=== PATIENT | male | born 1945 | race Caucasian/White ===

== ENCOUNTER → 2017-11-23 10:58 | Outpatient (CLI) | payer MEDICARE, OTHER, SELFPAY ==
--- NOTE | 2017-11-23 | DI.RAD.S_ITS ---
PROCEDURE: XR FOOT LT MIN 3V INDICATIONS: left foot pain and swelling TECHNIQUE: 3 views of the foot were acquired. COMPARISON: None. FINDINGS: Bones: No fractures or dislocations. No suspicious bony lesions. There is diffuse osteopenia. Diffuse interphalangeal and first MTP joint degeneration is present. There is hallux valgus appearance however weight bearing views would be more specific. Diffuse midfoot degenerative spurring and subchondral sclerosis. Posterior calcaneal spur is present. Soft tissues: No tibiotalar joint effusion. Achilles tendon appears normal. IMPRESSION: No acute fracture. Diffuse degenerative changes as above. Suspect hallux valgus, however weightbearing views would be more specific. Dictated by: Roland Holden M.D. on 11/23/2017 at 12:11 Approved by: Roland Holden M.D. on 11/23/2017 at 12:14
== END ==
PROVIDERS: Family Provider Family Medicine; PCP Family Medicine; Visit Provider Family Medicine
DX: M19.072 Primary osteoarthritis, left ankle and foot (principal); M77.32 Calcaneal spur, left foot; M85.872 Other specified disorders of bone density and structure, left ankle and foot; M79.672 Pain in left foot
CPT/HCPCS: 73630

== ENCOUNTER → 2018-10-10 16:05 | Outpatient (CLI) | payer MEDICARE, OTHER, SELFPAY ==
[2018-02-04 09:09] VITALS: BMI 32.7
--- NOTE | 2018-10-10 | DI.MRI.S_ITS ---
PROCEDURE: MR HIP RT WO/W CON INDICATIONS: RIGHT HIP PAIN TECHNIQUE: Noncontrast coronal T1 spin echo and STIR through the bony pelvis. Coronal and axial T2 fast spin echo with fat saturation, axial T1 spin echo with fat saturation, sagittal T1 spin echo, and oblique axial T2 fast spin echo with fat saturation through the hip. Post-contrast axial, coronal, and sagittal spin echo with fat saturation through the hip. COMPARISON: [facility], MR, HIP W&WO CONTRAST, 06/26/2017, 14:26. FINDINGS: Image quality: There is mild motion artifact. Bones and joints: There is regional bone marrow edema within the right femoral head and neck extending to the intertrochanteric region of the proximal right femur. There is a curvilinear subcortical low signal intensity line demonstrated on T1 and T2 along the superior articular surface of the right femoral head. No articular surface depression. There is a small associated right hip joint effusion. Prominent periarticular soft tissue edema and enhancement are demonstrated. The visualized lower lumbar spine demonstrates [id number] degenerative disc disease. Tendons and ligaments: The gluteus medius and minimus tendons appear intact, without associated muscle atrophy. The nearby proximal iliotibial band also appears intact. The iliopsoas tendon appears intact, without with a small amount of loculated fluid in the iliopsoas bursa. The origin of the hamstring tendon is intact at the ischial tuberosity, as well as the associated sacrotuberous ligament. The straight and reflected heads of the rectus femoris muscle origin appear intact, as well as the conjoint tendon. The ligamentum teres appears intact where visualized. Labrum and cartilage: There is circumferential degenerative tearing of the labrum including the superior, posterosuperior, anterosuperior, and anterior labrum. Cartilage surface of the femoral head demonstrates mild axial joint space narrowing. The alpha angle of the femur is within normal limits at less than 55 degrees. Soft tissues: No discrete soft tissue mass. Visualized muscles demonstrate normal bulk and internal signal. Quadratus femoris muscle demonstrates no internal edema to suggest ischiofemoral impingement. The proximal sciatic neurovascular bundle appears normal adjacent to the hamstring tendons. No free pelvic fluid. There is heterogeneous enlargement of the prostate likely representing BPH. The bladder demonstrates mild concentric wall thickening and trabeculation compatible with sequelae of chronic bladder outlet obstruction. IMPRESSION: 1. Confluent bone marrow edema and enhancement within the right femoral head and neck with a subcortical low signal intensity line along the superior articular surface. Findings are suggestive of a nondepressed impaction fracture with associated reactive edema. The differential includes avascular necrosis and transient migratory osteoporosis of the hip. 2. Small joint effusion with periarticular soft tissue edema enhancement. The findings may represent reactive changes, an inflammatory synovitis, or infection. Recommend correlation clinically and consider a followup MRI of the hip for further evaluation if indicated. The findings are similar to the contralateral hip on the prior MRI study. 3. Small iliopsoas bursa fluid collection compatible with bursitis. 4. Heterogeneous enlargement of the prostate with concentric bladder wall thickening and trabeculation consistent with sequelae of chronic bladder outlet obstruction. Dictated by: Rosalio Dietrich M.D. on 10/11/2018 at 15:02 Approved by: Rosalio Dietrich M.D. on 10/11/2018 at 15:19
== END ==
PROVIDERS: Family Provider Family Medicine; PCP Family Medicine; Visit Provider Physical Medicine & Rehabilitation
DX: M25.551 Pain in right hip (principal); M25.451 Effusion, right hip; N40.0 Benign prostatic hyperplasia without lower urinary tract symptoms; N32.89 Other specified disorders of bladder
CPT/HCPCS: 73723; A9579

== ENCOUNTER → 2020-02-02 14:11 | Outpatient (CLI) | payer MEDICARE, OTHER, SELFPAY ==
[2018-02-04 09:09] VITALS: BMI 32.7
[2020-02-03 12:28] LABS: COVID19 Sendout Not Detected (Not Detect)
== END ==
PROVIDERS: PCP Family Medicine; Visit Provider Physician Assistant
DX: Z11.59 Encounter for screening for other viral diseases (principal)
CPT/HCPCS: 87635

== ENCOUNTER 2020-02-05 12:25 | Day surgery (SDC) | payer MEDICARE, OTHER, SELFPAY ==
[2018-02-04 09:09] VITALS: BMI 32.7
[2020-02-05] VITALS (7 sets, daily range): BP systolic 120–152; BP diastolic 65–77; PULSE 52–98; RESP 11–22; TEMP 35.9–36.4; O2SAT 94–98; BMI 31.8
--- NOTE | 2020-02-05 | PATH_ITS ---
[facility] Accession Number: [id number] . 01 Material submitted: . colon - POLYP HEPATIC FLEXURE . 01 Clinical history: . SDC . 02 Diagnosis: Hepatic Flexure, Polyp, Biopsy: Tubular adenoma. [facility] 02/09/2020 1630 Local . 02 Electronically signed: . Melanie Shrestha MD, Pathologist NPI- [id number] . 01 Gross description: . POLYP HEPATIC FLEXURE: Received in formalin is 1 fragment(s) of bell, soft tissue measuring 0.3 x 0.3 x 0.3 cm submitted entirely in 1 cassette(s) /QBJ 02/06/2020 0834 Local . 02 Pathologist provided ICD-10: D12.3 . 02 CPT . 002266 Performed at: 01 [facility] [address] [id number] MD Rosalio Mccrary MD Phone: [phone] Performed at: 02 [facility] [address] [place] [id number] MD Melanie Shrestha MD Phone: [phone]
[2020-02-05] MEDS: LACTATED RINGERS 1,000 ML 200 ML IV (13:05)
--- NOTE | 2020-02-05 13:51 | PM.HP.1 ---
History of Present Illness History of Present Illness Date Patient Seen: 02/05/20 Time Patient Seen: 13:52 Chief complaint: SDC Narrative: The patient presents for colorectal sreening. They had previous screening 5 years ago which demonstrated adenomatous polyps which were resected. No personal or family history of colon cancer. On further history denies any recent gastrointestinal symptoms. No nausea, vomiting, abdominal pain, loss of appetite, unexplained weight loss, change in bowel habits, diarrhea, constipation, melena, hematochezia, or bright red blood per rectum. Patient History Medical History COPD (chronic obstructive pulmonary disease) (Acute) Surgical History S/P ablation of atrial fibrillation (Acute) Family & Social History Social History: household members none Tobacco & Substance use: Smoking Status Former smoker alcohol intake current alcohol intake frequency 0-2 drinks per day Substance Use Type does not use Meds Home Medications and Allergies Home Medications Medication Instructions Recorded Confirmed Type Spiriva with HandiHaler 1 puff INH QDAY #0 05/02/16 02/05/20 History albuterol sulfate [Ventolin HFA] 1 puff INH PRN PRN #0 05/02/16 02/05/20 History carvedilol [Coreg] 6.25 mg PO BID #0 05/02/16 02/05/20 History lorazepam 1 mg PO TIDP PRN #0 05/02/16 02/05/20 History multivitamin [Multiple Vitamins] 1 tab PO QDAY #0 05/02/16 02/05/20 History terazosin 10 mg PO QDAY #0 05/02/16 02/05/20 History apixaban [Eliquis] 5 mg PO BID 02/05/20 02/05/20 History cholecalciferol (vitamin D3) 50 mcg PO DAILY 02/05/20 02/05/20 History [Vitamin D3] diltiazem HCl 120 mg PO DAILY 02/05/20 02/05/20 History finasteride 5 mg PO DAILY 02/05/20 02/05/20 History Allergies Allergy/AdvReac Type Severity Reaction Status Date / Time No Known Drug Allergies Allergy Verified 02/05/20 12:44 Review of Systems Review of Systems Narrative: A 10 point review of systems is negative except as noted in the HPI Exam Vital Signs (past 8 hours): - 02/05/20 13:06 Temperature 97.6 F Pulse Rate 61 Respiratory Rate 18 Blood Pressure 152/77 H Pulse Oximetry 98 Oxygen Delivery Method Room Air Narrative Exam Narrative: General-no acute distress, well nourished adult male HEENT-moist mucous membranes, no scleral icterus Neck-supple, no lymphadenopathy Chest- non labored respirations, clear to auscultation bilaterally Cardiac-regular rate no peripheral edema Abdomen-soft, nontender, non distended Extremities-warm, well perfused Neurological-alert and oriented, no focal deficits Assessment & Plan Assessment and plan (1) Screening for colon cancer: Status: Acute Assessment & Plan narrative: The patient requires colorectal screening and colonoscopy is recommended. Technical details were discussed. Risks, benefits, alternatives explained. Risks including but not limited to myocardial infarction, aspiration, bleeding, pain, missed lesion, incomplete examination, need for further radiographic studies, colonic perforation, and need for major abdominal surgery were discussed. All questions were answered to their satisfaction, and they are in agreement with this plan.
[2020-02-05] MEDS: fentaNYL 250 MCG/5 ML INJ IV (14:00)
[2020-02-05] MEDS: MIDAZOLAM 5 MG/5 ML VIAL IV (14:00)
--- NOTE | 2020-02-05 14:16 | PM.OP.ENDO ---
Operative Date/Time/Diagnoses Date of procedure: 02/05/20 Time of procedure: 14:16 Pre-op diagnosis: Screening colonoscopy Post-op diagnosis: same Procedure & Clinicians Study performed: Colonoscopy Same procedure as scheduled: Yes Indications: 74-year-old man with history of adenomatous polyps here for a routine screening colonoscopy Surgeon: Duke Valadez Procedure Notes SCOAP/Timeout: Performed Procedure in detail: Patient placed in left lateral recumbent position. Time out was performed. Procedural sedation was administered with Versed and Fentanyl. Examination began with a thorough inspection of the perianal area there was no evidence of fissures, fistulae, external hemorrhoids or cutaneous malignancy. The colonoscopy scope was then placed into the rectum the the lumen was insufflated with air. The scope was carefully advanced forward. Ultimately the cecum was intubated and confirmed by identification of the ileocecal valve, the appendiceal orifice and the confluence of the taenia. The scope was then slowly withdrawn examining colon thoroughly in all directions. In the rectum the rectal columns were identified and retroflexion of the scope was performed for inspection of the distal rectum and anal canal. The colonoscopy was notable for the followin. Quality of the preparation-good 2. Hepatic flexure polyp less than 1 cm removed in its entirety with biopsy forceps hemostasis observed 3. Sigmoid diverticulosis Scope withdrawal time: 6 Sedation minutes: 15 Findings: diverticulosis and polyp Specimen(s): other (Hepatic flexure polyp) Complications: none Impression: Polyp, diverticulosis Post-procedure Recommendations: Colonscopy in 5 years and High fiber diet Disposition: same day surgery
--- NOTE | 2020-02-05 14:33 | SUR.PHASEI ---
Dr. Valadez notified patient's heart rate varying from 50-120. Mostly in the 70-90s. Patient denied chest pain, nausea or dyspnea. No new orders.
== END 2020-02-05 15:09 | disposition home or self-care (01) ==
PROVIDERS: PCP Family Medicine; Referring Provider Surgery; Visit Provider Surgery
PROC: 0DJD8ZZ Inspection of Lower Intestinal Tract, Via Natural or Artificial Opening Endoscopic (ICD-10-PCS; CPT 45378; principal; 2020-02-05 13:45)
DX: Z12.11 Encounter for screening for malignant neoplasm of colon (principal); J44.9 Chronic obstructive pulmonary disease, unspecified; K57.30 Diverticulosis of large intestine without perforation or abscess without bleeding; D12.3 Benign neoplasm of transverse colon
CPT/HCPCS: 45380; 99152; J2250; J3010

== ENCOUNTER → 2020-05-11 14:46 | Outpatient (CLI) | payer MEDICARE, OTHER, SELFPAY ==
[2018-02-04 09:09] VITALS: BMI 32.7
--- NOTE | 2020-05-11 | DI.ECHO.S_ITS ---
[facility] [facility]---------+ [facility] +---------+ : : [address] : : : : [id number] : : : : Phone: [phone] Echocardiogram Report + + :Name: SRINIVASAN VALENCIA Study Date: 05/11/2020 Height: 74 in : :[facility] Weight: 262 lb : : Gender: Male BSA: 2.4 m2 : :: 1945 Age: 74 yrs BP: 165/82 mmHg: :Reason For Study: DILATED CARDIOMYOPATHY : :Ordering Physician: TRINIDAD, : :DEQUAN Performed By: Pricila Monahan : :Referring: DEQUAN FRY : + + Interpretation Summary The left ventricle is normal in size. There is mild concentric left ventricular hypertrophy. Left ventricular systolic function is mildly reduced. Left ventricular ejection fraction is estimated to be 45%. LVEF has not changed since prior study. Diastolic parameters suggest probable normal left ventricular diastolic function and normal filling pressures. The right ventricle is mildly dilated. Right ventricular systolic function is mildly reduced and probably has borderlined improved since prior sutdy. Pulmonary artery pressures cannot be estimated because of the lack of a measurable TR jet velocity but the IVC suggests a CVP of around 3 mmHg. The left atrium is severely dilated. The right atrium is moderately dilated. There is an inter-atrial closure device present. There is no Doppler evidence for an interatrial shunt. There is mild to moderate mitral regurgitation. There is mild to moderate aortic regurgitation. The ascending aorta is mildly enlarged. Procedure: A two-dimensional transthoracic echocardiogram with color flow and Doppler was performed. The study quality was technically adequate. Comparison is made with the echocardiogram of 04/16/2015. The patient had occasional PVCs during the exam. The heart rate ranged between 47-66 bpm during the study. Left Ventricle: The left ventricle is normal in size. There is mild concentric left ventricular hypertrophy. The estimated left ventricular end diastolic volume is 120 ml. Left ventricular systolic function is mildly reduced. Left ventricular ejection fraction is estimated to be 45%. There is mild global hypokinesis of the left ventricle. Diastolic parameters suggest probable normal left ventricular diastolic function and normal filling pressures. Right Ventricle: The right ventricle is mildly dilated. Right ventricular systolic function is mildly reduced. Atria: The left atrium is severely dilated. The right atrium is moderately dilated. There is an inter-atrial closure device present. There is no Doppler evidence for an interatrial shunt. Mitral Valve: The mitral valve leaflets are slightly calcified. There is mild to moderate mitral regurgitation. There are multiple regurgitant jets present. Aortic Valve: The aortic valve is trileaflet. The aortic valve opens well. There is no aortic valve stenosis. There is mild to moderate aortic regurgitation. Tricuspid Valve: The tricuspid valve leaflets are thickened and/or calcified, but open well. Pulmonary artery pressures cannot be estimated because of the lack of a measurable TR jet velocity but the IVC suggests a CVP of around 3 mmHg. There is trace tricuspid regurgitation. Pulmonic Valve: The pulmonic valve is not well seen, but is grossly normal. There is mild pulmonic regurgitation. Great Vessels: The aortic root is normal size. The ascending aorta is mildly enlarged. The IVC is of normal diameter and collapses greater than 50% with a sniff. This suggests a low right atrial pressure of 3 mm Hg. Pericardium/ Pleura There is no pericardial effusion. There is no pleural effusion. MMode/2D Measurements & Calculations LVIDd: 5.7 cm LVOT diam: 2.4 cm LVIDs: 4.4 cm Ao root diam: 3.8 cm FS: 22.8 % asc Aorta Diam: 3.6 cm EPSS: 1.3 cm IVSd: 1.4 cm LVPWd: 1.2 cm LV bird. diameter/BSA (cm/m^2): 2.3 LV sys. diameter/BSA (cm/m^2): 1.8 LA A2 area: 32.3 cm2 RA long axis: 5.6 cm LA A4 area: 29.7 cm2 RA area: 26.5 cm2 LA length (vol): 6.5 cm RA vol: 105.9 ml LA vol: 125.1 ml RA : 43.4 ml/m2 LA vol index: 51.3 ml/m2 IVC diam: 1.1 cm RVD1 (basal): 4.6 cm TAPSE: 1.6 cm Doppler Measurements & Calculations Ao V2 max: 118.6 cm/sec LVOT Max Marcellus: 70.0 cm/sec Ao V2 mean: 84.9 cm/sec LV V1 max P.0 mmHg Ao max P.6 mmHg LV V1 VTI: 17.3 cm Ao mean P.1 mmHg GAGAN(I,D): 2.5 cm2 Ao V2 VTI: 30.4 cm GAGAN(V,D): 2.6 cm2 sev ratio: 0.57 GAGAN indexed to BSA (cm^2/m^2): 1.0 AI P1/2t: 847.1 msec AI dec slope: 146.8 cm/sec2 MV E max marcellus: 60.4 cm/sec PA V2 max: 68.1 cm/sec MV A max marcellus: 55.6 cm/sec PA V2 mean: 41.4 cm/sec MV E/A: 1.1 PA mean P.81 mmHg Med Peak E' Marcellus: 5.1 cm/sec PA pr(Accel): 19.9 mmHg E/E' med: 11.9 Lat Peak E' Marcellus: 6.1 cm/sec E/E' lat: 9.9 E/e' average: 10.9 MV dec time: 0.25 sec SV(LVOT): 76.1 ml Reading Physician:06:02 PM
== END ==
PROVIDERS: Referring Provider Internal Medicine Cardiovascular Disease; Visit Provider Internal Medicine Cardiovascular Disease
DX: I08.0 Rheumatic disorders of both mitral and aortic valves (principal); I77.89 Other specified disorders of arteries and arterioles; I42.0 Dilated cardiomyopathy
CPT/HCPCS: 93306

== ENCOUNTER → 2020-11-29 07:47 | Outpatient (CLI) | payer MEDICARE, OTHER, SELFPAY ==
[2018-02-04 09:09] VITALS: BMI 32.7
[2020-11-29 08:22] LABS: Add Manual Diff / Slide Review NO; Basophils Absolute Auto 100 /uL (0-100); Eosinophils Absolute Auto 100 /uL (0-450); Eosinophils Percent Auto 2.2 % (2-4); Hematocrit 46.1 % (41-53); Hemoglobin 15.8 g/dL (13.5-17.5); Lymphocytes Absolute Auto 1400 /uL (1100-4500); Lymphocytes Percent Auto 24.9 % (25-40); Mean Corpuscular HGB Conc 34.2 % (30-36); Mean Corpuscular Hemoglobin 31.3 PG (26-34); Mean Corpuscular Volume 91.4 fL (80-100); Monocytes Absolute Auto 400 /uL (0-900); Monocytes Percent Auto 7.1 % (3-14); Neutrophils Absolute Auto 3600 /uL (1500-7000); Neutrophils Percent Auto 64.8 % (50-75); Platelet Count 133 X10^3/uL (150-400); Red Blood Cell Count 5.05 X10^6/uL (4.5-5.9); Red Cell Distribution Width 13.2 % (11.6-14.8); White Blood Cell Count 5.6 X10^3/uL (4.5-11.0)
[2020-11-29 08:46] LABS: Alanine Aminotransferase 21 IU/L (<50); Albumin 3.9 g/dL (3.5-5.0); Albumin Globulin Ratio 1.6 (1.0-2.8); Alkaline Phosphatase 68 U/L (38-126); Aspartate Aminotransferase 25 IU/L (17-59); BUN Creatinine Ratio 20.4 (6-22); Bilirubin Total 0.8 mg/dL (0.2-1.3); Blood Urea Nitrogen 22 mg/dL (9-20); Calcium 9.4 mg/dL (8.4-10.2); Carbon Dioxide 29 mmol/L (22-32); Chloride 105 mmol/L (98-107); Cholesterol 191 mg/dL (140-199); Estimated Glomerular Filt Rate > 60.0 mL/min (>60); Globulin 2.4 g/dL (1.7-4.1); Glucose 94 mg/dL (80-110); HDL Cholesterol 67 mg/dL (40-60); HEMOLYSIS < 15 (0-50); LDL Cholesterol Calculated 110 mg/dL (<100); Potassium 4.2 mmol/L (3.4-5.1); Sodium 140 mmol/L (137-145); Total Protein 6.3 g/dL (6.3-8.2); Triglycerides 71 mg/dL (35-150)
== END ==
PROVIDERS: PCP Internal Medicine; Referring Provider Internal Medicine; Visit Provider Internal Medicine
DX: E29.1 Testicular hypofunction (principal); I10 Essential (primary) hypertension; I49.9 Cardiac arrhythmia, unspecified; J44.9 Chronic obstructive pulmonary disease, unspecified; N13.8 Other obstructive and reflux uropathy; N40.1 Benign prostatic hyperplasia with lower urinary tract symptoms
CPT/HCPCS: 36415; 80053; 80061; 85025

== ENCOUNTER → 2021-01-06 08:47 | Outpatient (CLI) | payer MEDICARE, OTHER, SELFPAY ==
[2018-02-04 09:09] VITALS: BMI 32.7
[2021-01-06 10:27] LABS: COVID19 -Nasal RAPID Negative (Negative)
== END ==
PROVIDERS: PCP Internal Medicine; Referring Provider Internal Medicine; Visit Provider Internal Medicine
DX: Z20.822 Contact with and (suspected) exposure to COVID-19 (principal)
CPT/HCPCS: 87635; C9803

== ENCOUNTER → 2021-01-06 08:49 | Outpatient (CLI) | payer MEDICARE, OTHER, SELFPAY ==
[2018-02-04 09:09] VITALS: BMI 32.7
--- NOTE | 2021-01-15 09:47 | PM.PFT.1 ---
Pulmonary Function Test Referral & Results Date Patient Seen: 01/06/21 Requesting provider: Lauro Hinkle Results: The spirometry demonstrates an FVC of 3.41 L which is 69% of predicted. The FEV1 was measured at 2.33 L which is 66% of predicted. The FEV1/FVC ratio was 68 which is 95% of predicted. Following the administration of bronchodilator there was a 29% improvement in FEF 25-75% Lung volumes show an SVC of 3.74 L which is 74% of predicted. The diffusing capacity was measured at 35.8 which is 95% of predicted. The maximum voluntary ventilation was slightly reduced Interpretation: This study demonstrates possibly mild obstructive lung disease based on reduction FEV1 although FEV1/FVC ratio is preserved there is evidence of improvement in small airway flow based on change in FEF 25-75% post bronchodilator and shape of flow volume loop also supports the presence of obstructive lung disease There is a mild reduction in lung volumes suggesting mild restrictive lung disease present as well Clinical correlation suggested
== END ==
PROVIDERS: PCP Internal Medicine; Referring Provider Internal Medicine; Visit Provider Internal Medicine
DX: J44.9 Chronic obstructive pulmonary disease, unspecified (principal); Z20.822 Contact with and (suspected) exposure to COVID-19; Z87.891 Personal history of nicotine dependence
CPT/HCPCS: 87635; 94060; 94726; 94729; C9803

== ENCOUNTER 2021-05-26 10:15 | Outpatient (RCR) | payer MEDICARE, OTHER, SELFPAY ==
[2018-02-04 09:09] VITALS: BMI 32.7
== END 2021-05-26 12:15 ==
LOC: PUL 10:15
PROVIDERS: PCP Internal Medicine; Referring Provider Internal Medicine; Visit Provider Internal Medicine
DX: J44.9 Chronic obstructive pulmonary disease, unspecified (principal)
CPT/HCPCS: 94625; 94626; G0424

== ENCOUNTER → 2021-09-30 10:02 | Outpatient (CLI) | payer MEDICARE, OTHER, SELFPAY ==
[2021-07-01 13:41] VITALS: BMI 32.7
[2021-09-30 10:31] LABS: Add Manual Diff / Slide Review NO; Basophils Absolute Auto 100 /uL (0-100); Basophils Percent Auto 1.2 % (0-2); Eosinophils Absolute Auto 100 /uL (0-450); Eosinophils Percent Auto 2.2 % (2-4); Hematocrit 45.8 % (41-53); Hemoglobin 15.7 g/dL (13.5-17.5); Lymphocytes Absolute Auto 1300 /uL (1100-4500); Lymphocytes Percent Auto 22.8 % (25-40); Mean Corpuscular HGB Conc 34.2 % (30-36); Mean Corpuscular Hemoglobin 31.1 PG (26-34); Mean Corpuscular Volume 90.9 fL (80-100); Monocytes Absolute Auto 500 /uL (0-900); Monocytes Percent Auto 8.5 % (3-14); Neutrophils Absolute Auto 3600 /uL (1500-7000); Neutrophils Percent Auto 65.3 % (50-75); Platelet Count 123 X10^3/uL (150-400); Red Blood Cell Count 5.04 X10^6/uL (4.5-5.9); White Blood Cell Count 5.5 X10^3/uL (4.5-11.0)
[2021-09-30 10:44] LABS: Alanine Aminotransferase 19 IU/L (<50); Albumin 4.2 g/dL (3.5-5.0); Albumin Globulin Ratio 1.7 (1.0-2.8); Alkaline Phosphatase 76 U/L (38-126); Aspartate Aminotransferase 26 IU/L (17-59); BUN Creatinine Ratio 20.4 (6-22); Bilirubin Total 0.8 mg/dL (0.2-1.3); Blood Urea Nitrogen 21 mg/dL (9-20); Calcium 9.3 mg/dL (8.4-10.2); Carbon Dioxide 32 mmol/L (22-32); Chloride 105 mmol/L (98-107); Estimated Glomerular Filt Rate > 60 mL/min (>60); Globulin 2.5 g/dL (1.7-4.1); Glucose 95 mg/dL (80-110); HEMOLYSIS < 15 (0-50); Potassium 4.3 mmol/L (3.4-5.1); Sodium 140 mmol/L (137-145); Total Protein 6.7 g/dL (6.3-8.2)
== END ==
PROVIDERS: PCP Internal Medicine; Referring Provider Internal Medicine; Visit Provider Internal Medicine
DX: I10 Essential (primary) hypertension (principal); I48.0 Paroxysmal atrial fibrillation; Z79.01 Long term (current) use of anticoagulants
CPT/HCPCS: 36415; 80053; 85025

== ENCOUNTER → 2022-08-15 11:01 | Outpatient (CLI) | payer MEDICARE, OTHER, SELFPAY ==
[2021-07-01 13:41] VITALS: BMI 32.7
[2022-08-15 12:19] LABS: Add Manual Diff / Slide Review NO; Basophils Absolute Auto 100 /uL (0-100); Basophils Percent Auto 1.4 % (0-2); Eosinophils Absolute Auto 100 /uL (0-450); Eosinophils Percent Auto 1.6 % (2-4); Hematocrit 47.6 % (41-53); Hemoglobin 16.1 g/dL (13.5-17.5); Lymphocytes Absolute Auto 1300 /uL (1100-4500); Lymphocytes Percent Auto 23.7 % (25-40); Mean Corpuscular HGB Conc 33.8 % (30-36); Mean Corpuscular Hemoglobin 31.2 PG (26-34); Mean Corpuscular Volume 92.3 fL (80-100); Monocytes Absolute Auto 400 /uL (0-900); Monocytes Percent Auto 6.5 % (3-14); Neutrophils Absolute Auto 3800 /uL (1500-7000); Neutrophils Percent Auto 66.8 % (50-75); Platelet Count 134 X10^3/uL (150-400); Red Blood Cell Count 5.15 X10^6/uL (4.5-5.9); Red Cell Distribution Width 14.4 % (11.6-14.8); White Blood Cell Count 5.7 X10^3/uL (4.5-11.0)
[2022-08-15 12:27] LABS: C-Reactive Protein Quant 0.7 mg/dL (<1.0)
[2022-08-15 12:34] LABS: Alanine Aminotransferase 22 IU/L (<50); Albumin Globulin Ratio 1.4 (1.0-2.8); Alkaline Phosphatase 75 U/L (38-126); Aspartate Aminotransferase 26 IU/L (17-59); BUN Creatinine Ratio 19.1 (6-22); Bilirubin Total 0.9 mg/dL (0.2-1.3); Blood Urea Nitrogen 21 mg/dL (9-20); Calcium 9.4 mg/dL (8.4-10.2); Carbon Dioxide 31 mmol/L (22-32); Chloride 103 mmol/L (98-107); Estimated Glomerular Filt Rate > 60 mL/min (>60); Globulin 2.9 g/dL (1.7-4.1); Glucose 84 mg/dL (80-110); HEMOLYSIS < 15 (0-50); Potassium 4.2 mmol/L (3.4-5.1); Sodium 140 mmol/L (137-145); Total Protein 6.9 g/dL (6.3-8.2)
[2022-08-15 12:36] LABS: Total Iron Binding Capacity 294 ug/dL (261-462)
[2022-08-15 12:41] LABS: HEMOLYSIS < 15 (0-50); Iron 147 ug/dL (49-181)
[2022-08-15 12:52] LABS: Percent Iron Saturation 52 % (20-50); Total Iron Binding Capacity 283 ug/dL (261-462); Transferrin 222 mg/dL (206-381)
[2022-08-15 12:57] LABS: Ferritin 159 ng/mL (18-464)
== END ==
PROVIDERS: PCP Internal Medicine; Referring Provider Internal Medicine Sleep Medicine; Visit Provider Internal Medicine Sleep Medicine
DX: R25.8 Other abnormal involuntary movements (principal); E83.10 Disorder of iron metabolism, unspecified; G25.81 Restless legs syndrome; I10 Essential (primary) hypertension; I48.0 Paroxysmal atrial fibrillation; J44.9 Chronic obstructive pulmonary disease, unspecified; D64.9 Anemia, unspecified
CPT/HCPCS: 36415; 80053; 82728; 83540; 83550; 85025; 86140

== ENCOUNTER → 2023-03-23 10:49 | Outpatient (CLI) | payer MEDICARE, OTHER, SELFPAY ==
[2021-07-01 13:41] VITALS: BMI 32.7
[2023-03-23 11:22] LABS: Add Manual Diff / Slide Review NO; Basophils Absolute Auto 100 /uL (0-100); Basophils Percent Auto 1.1 % (0-2); Eosinophils Absolute Auto 100 /uL (0-450); Eosinophils Percent Auto 2.2 % (2-4); Hematocrit 45.6 % (41-53); Hemoglobin 15.7 g/dL (13.5-17.5); Lymphocytes Absolute Auto 1300 /uL (1100-4500); Lymphocytes Percent Auto 20.5 % (25-40); Mean Corpuscular HGB Conc 34.3 % (30-36); Mean Corpuscular Hemoglobin 31.2 PG (26-34); Mean Corpuscular Volume 90.9 fL (80-100); Monocytes Absolute Auto 400 /uL (0-900); Neutrophils Absolute Auto 4200 /uL (1500-7000); Neutrophils Percent Auto 69.2 % (50-75); Platelet Count 129 X10^3/uL (150-400); Red Blood Cell Count 5.01 X10^6/uL (4.5-5.9); Red Cell Distribution Width 13.7 % (11.6-14.8); White Blood Cell Count 6.1 X10^3/uL (4.5-11.0)
[2023-03-23 11:35] LABS: Alanine Aminotransferase 19 IU/L (<50); Albumin Globulin Ratio 1.5 (1.0-2.8); Alkaline Phosphatase 72 U/L (38-126); Aspartate Aminotransferase 24 IU/L (17-59); BUN Creatinine Ratio 21.1 (6-22); Blood Urea Nitrogen 23 mg/dL (9-20); Calcium 9.7 mg/dL (8.4-10.2); Carbon Dioxide 31 mmol/L (22-32); Chloride 102 mmol/L (98-107); Estimated Glomerular Filt Rate > 60 mL/min (>60); Globulin 2.6 g/dL (1.7-4.1); Glucose 90 mg/dL (80-110); HEMOLYSIS < 15 (0-50); Potassium 4.4 mmol/L (3.4-5.1); Sodium 138 mmol/L (137-145); Total Protein 6.6 g/dL (6.3-8.2)
== END ==
PROVIDERS: PCP Internal Medicine; Referring Provider Internal Medicine; Visit Provider Internal Medicine
DX: I10 Essential (primary) hypertension (principal); I48.0 Paroxysmal atrial fibrillation; J44.9 Chronic obstructive pulmonary disease, unspecified
CPT/HCPCS: 36415; 80053; 85025

== ENCOUNTER → 2023-04-26 14:15 | Outpatient (CLI) | payer MEDICARE, OTHER, SELFPAY ==
[2021-07-01 13:41] VITALS: BMI 32.7
[2023-04-26 15:17] LABS: Add Manual Diff / Slide Review NO; Basophils Absolute Auto 0 /uL (0-100); Basophils Percent Auto 0.7 % (0-2); Eosinophils Absolute Auto 100 /uL (0-450); Eosinophils Percent Auto 1.7 % (2-4); Hemoglobin 16.1 g/dL (13.5-17.5); Lymphocytes Absolute Auto 1500 /uL (1100-4500); Lymphocytes Percent Auto 24.2 % (25-40); Mean Corpuscular HGB Conc 34.1 % (30-36); Mean Corpuscular Hemoglobin 31.4 PG (26-34); Mean Corpuscular Volume 92.1 fL (80-100); Monocytes Absolute Auto 400 /uL (0-900); Monocytes Percent Auto 6.7 % (3-14); Neutrophils Absolute Auto 4100 /uL (1500-7000); Neutrophils Percent Auto 66.7 % (50-75); Platelet Count 140 X10^3/uL (150-400); Red Blood Cell Count 5.11 X10^6/uL (4.5-5.9); Red Cell Distribution Width 13.6 % (11.6-14.8); White Blood Cell Count 6.1 X10^3/uL (4.5-11.0)
[2023-04-26 15:54] LABS: Alanine Aminotransferase 24 IU/L (<50); Albumin 4.1 g/dL (3.5-5.0); Albumin Globulin Ratio 1.4 (1.0-2.8); Alkaline Phosphatase 68 U/L (38-126); Aspartate Aminotransferase 29 IU/L (17-59); BUN Creatinine Ratio 17.4 (6-22); Bilirubin Total 0.9 mg/dL (0.2-1.3); Blood Urea Nitrogen 20 mg/dL (9-20); Carbon Dioxide 34 mmol/L (22-32); Chloride 102 mmol/L (98-107); Estimated Glomerular Filt Rate > 60 mL/min (>60); Globulin 2.9 g/dL (1.7-4.1); Glucose 90 mg/dL (80-110); HEMOLYSIS < 15 (0-50); Potassium 4.7 mmol/L (3.4-5.1); Sodium 140 mmol/L (137-145)
[2023-04-26 19:12] LABS: TSH w/ Reflex to FT4 2.89 uIU/mL (0.47-4.68)
== END ==
PROVIDERS: PCP Internal Medicine; Referring Provider Internal Medicine; Visit Provider Internal Medicine
DX: I10 Essential (primary) hypertension (principal); I42.0 Dilated cardiomyopathy; I48.92 Unspecified atrial flutter
CPT/HCPCS: 36415; 80053; 84443; 85025

== ENCOUNTER → 2024-03-16 12:08 | Outpatient (CLI) | payer MEDICARE, OTHER, SELFPAY ==
[2023-05-18 14:55] VITALS: BMI 32.7
[2024-03-16 12:53] LABS: Influenza A - CEPHEID Flu A NEGATIVE (NEGATIVE); Influenza B - CEPHEID Flu B NEGATIVE (NEGATIVE); Respiratory Syncytial Virus Negative (Negative)
[2024-03-16 12:54] LABS: COVID-19 CEPHEID 4-PLEX PCR Negative (Negative)
== END ==
PROVIDERS: Family Provider Internal Medicine; PCP Internal Medicine; Visit Provider Physician Assistant Surgical
DX: R05.1 Acute cough (principal)
CPT/HCPCS: 0241U

== ENCOUNTER → 2024-03-16 12:50 | Outpatient (CLI) | payer MEDICARE, OTHER, SELFPAY ==
[2023-05-18 14:55] VITALS: BMI 32.7
--- NOTE | 2024-03-16 12:52 | DI.RAD.S_ITS ---
PROCEDURE: XR CHEST 2V INDICATIONS: Cough, SOB TECHNIQUE: 2 views of the chest were acquired. COMPARISON: None. FINDINGS: Surgical changes and devices: None. Lungs and pleura: Lungs are clear. No pleural effusions or pneumothorax. Mediastinum: Mediastinal contours are normal. Heart size is normal. Bones and chest wall: No suspicious bony abnormalities. Soft tissues appear unremarkable. IMPRESSION: No acute cardiopulmonary pathology. Dictated by: Dickson Gilliam M.D. on 03/16/2024 at 13:10 Approved by: Dickson Gilliam M.D. on 03/16/2024 at 13:12
== END ==
PROVIDERS: Family Provider Internal Medicine; PCP Internal Medicine; Referring Provider Physician Assistant Surgical; Visit Provider Physician Assistant Surgical
DX: R05.1 Acute cough (principal)
CPT/HCPCS: 0241U; 71046

== ENCOUNTER → 2024-05-19 14:02 | Outpatient (CLI) | payer MEDICARE, OTHER, SELFPAY ==
[2023-05-18 14:55] VITALS: BMI 32.7
[2024-05-19 15:10] LABS: Add Manual Diff / Slide Review NO; Basophils Absolute Auto 100 /uL (0-100); Basophils Percent Auto 1.2 % (0-2); Eosinophils Absolute Auto 200 /uL (0-450); Eosinophils Percent Auto 2.7 % (2-4); Hematocrit 48.8 % (41-53); Hemoglobin 16.5 g/dL (13.5-17.5); Lymphocytes Absolute Auto 1400 /uL (1100-4500); Lymphocytes Percent Auto 20.7 % (25-40); Mean Corpuscular HGB Conc 33.7 % (30-36); Mean Corpuscular Hemoglobin 31.4 PG (26-34); Mean Corpuscular Volume 93.1 fL (80-100); Monocytes Absolute Auto 500 /uL (0-900); Monocytes Percent Auto 7.8 % (3-14); Neutrophils Absolute Auto 4500 /uL (1500-7000); Neutrophils Percent Auto 67.6 % (50-75); Platelet Count 123 X10^3/uL (150-400); Red Blood Cell Count 5.24 X10^6/uL (4.5-5.9); Red Cell Distribution Width 14.1 % (11.6-14.8); White Blood Cell Count 6.7 X10^3/uL (4.5-11.0)
[2024-05-19 15:44] LABS: HEMOLYSIS < 15 (0-50); Iron 154 ug/dL (49-181)
[2024-05-19 15:46] LABS: Alanine Aminotransferase 21 IU/L (<50); Albumin 4.2 g/dL (3.5-5.0); Albumin Globulin Ratio 1.8 (1.0-2.8); Alkaline Phosphatase 81 U/L (38-126); Aspartate Aminotransferase 28 IU/L (17-59); BUN Creatinine Ratio 21.3 (6-22); Bilirubin Total 0.8 mg/dL (0.2-1.3); Blood Urea Nitrogen 29 mg/dL (9-20); Calcium 9.7 mg/dL (8.4-10.2); Carbon Dioxide 33 mmol/L (22-32); Chloride 102 mmol/L (98-107); Estimated Glomerular Filt Rate 53 mL/min (>60); Globulin 2.4 g/dL (1.7-4.1); Glucose 79 mg/dL (80-110); HEMOLYSIS < 15 (0-50); Potassium 4.7 mmol/L (3.4-5.1); Sodium 139 mmol/L (137-145); Total Protein 6.6 g/dL (6.3-8.2)
[2024-05-19 15:55] LABS: Percent Iron Saturation 59 % (20-50); Total Iron Binding Capacity 262 ug/dL (261-462); Transferrin 241 mg/dL (206-381)
== END ==
LOC: LAB 14:04
PROVIDERS: Family Provider Internal Medicine; PCP Internal Medicine; Referring Provider Internal Medicine; Visit Provider Internal Medicine
DX: I10 Essential (primary) hypertension (principal); J44.9 Chronic obstructive pulmonary disease, unspecified; I48.92 Unspecified atrial flutter; I48.0 Paroxysmal atrial fibrillation; Z79.01 Long term (current) use of anticoagulants
CPT/HCPCS: 36415; 80053; 83540; 83550; 85025

== ENCOUNTER → 2024-11-07 11:29 | Outpatient (CLI) | payer MEDICARE, OTHER, SELFPAY ==
[2023-05-18 14:55] VITALS: BMI 32.7
[2024-11-07 12:31] LABS: Add Manual Diff / Slide Review NO; Basophils Absolute Auto 100 /uL (0-100); Basophils Percent Auto 0.8 % (0-2); Eosinophils Absolute Auto 100 /uL (0-450); Eosinophils Percent Auto 1.6 % (2-4); Hematocrit 46.5 % (41-53); Lymphocytes Absolute Auto 1100 /uL (1100-4500); Lymphocytes Percent Auto 18.2 % (25-40); Mean Corpuscular HGB Conc 34.4 % (30-36); Mean Corpuscular Hemoglobin 32.1 PG (26-34); Mean Corpuscular Volume 93.2 fL (80-100); Monocytes Absolute Auto 400 /uL (0-900); Monocytes Percent Auto 7.1 % (3-14); Neutrophils Absolute Auto 4500 /uL (1500-7000); Neutrophils Percent Auto 72.3 % (50-75); Platelet Count 113 X10^3/uL (150-400); Red Blood Cell Count 4.98 X10^6/uL (4.5-5.9); Red Cell Distribution Width 14.1 % (11.6-14.8); White Blood Cell Count 6.2 X10^3/uL (4.5-11.0)
[2024-11-07 12:52] LABS: Alanine Aminotransferase 18 IU/L (<50); Albumin 4.3 g/dL (3.5-5.0); Albumin Globulin Ratio 1.7 (1.0-2.8); Alkaline Phosphatase 78 U/L (38-126); Aspartate Aminotransferase 26 IU/L (17-59); BUN Creatinine Ratio 23.9 (6-22); Bilirubin Total 1.1 mg/dL (0.2-1.3); Blood Urea Nitrogen 26 mg/dL (9-20); Calcium 9.8 mg/dL (8.4-10.2); Carbon Dioxide 30 mmol/L (22-32); Chloride 104 mmol/L (98-107); Estimated Glomerular Filt Rate > 60 mL/min (>60); Globulin 2.5 g/dL (1.7-4.1); Glucose 92 mg/dL (70-99); HEMOLYSIS < 15 (0-50); Potassium 4.5 mmol/L (3.4-5.1); Sodium 141 mmol/L (137-145); Total Protein 6.8 g/dL (6.3-8.2)
[2024-11-07 13:25] LABS: TSH w/ Reflex to FT4 3.15 uIU/mL (0.47-4.68)
== END ==
PROVIDERS: Family Provider Internal Medicine; PCP Internal Medicine; Referring Provider Internal Medicine; Visit Provider Internal Medicine
DX: I10 Essential (primary) hypertension (principal); I48.0 Paroxysmal atrial fibrillation; Z79.01 Long term (current) use of anticoagulants
CPT/HCPCS: 36415; 80053; 84443; 85025

== ENCOUNTER 2025-03-13 12:58 | Emergency (ER) | payer MEDICARE, OTHER, SELFPAY ==
[2023-05-18 14:55] VITALS: BMI 32.7
[2025-03-13 13:01] VITALS: BP 164/78; PULSE 84; RESP 18; TEMP 36.4; O2SAT 97; BMI 29.0
--- NOTE | 2025-03-13 13:35 | DI.RAD.S_ITS ---
PROCEDURE: XR RIBS RT MIN 3V W CXR 1V INDICATIONS: R posterior rib pain/fall TECHNIQUE: 2 views of the ribs were acquired, along with a single view chest. COMPARISON: None. FINDINGS: Surgical changes and devices: None. Bones and chest wall: No acute fractures or dislocations. No suspicious bony lesions. Overlying soft tissues appear unremarkable. Healed, remote bilateral rib fractures. Lungs and pleura: No pleural effusions or pneumothorax. Lungs appear clear. Mediastinum: Mediastinal contours appear normal. Heart size is normal. IMPRESSION: No displaced rib fracture or pneumothorax. Dictated by: Bakari Mccrary M.D. on 03/13/2025 at 14:08 Approved by: Bakari Mccrary M.D. on 03/13/2025 at 14:09
--- NOTE | 2025-03-13 14:07 | ED_ITS ---
<Statement entered by Lauro Fields, DO - 03/13/25 19:24> Co-sign statement: I was available for consultation during this patient's emergency department visit. This chart is being signed by myself for administrative purposes only. I do not have direct contact with this patient during this visit. They were seen independently by the APC. HPI - Fall General Chief Complaint: Fall Stated Complaint: Fell hurt lower right back, on blood thinners Time Seen by Provider: 03/13/25 13:35 Mode of arrival: Ambulatory History of Present Illness HPI Narrative: This is an 79-year-old male with paroxysmal AFib, on Eliquis presenting with concern for right flank discomfort that began immediately after he had a fall today. Patient states he was sitting down on a wheelchair he has been forward to tie his shoe and realize the surface of the chair was very slippery and he was ?going to fall?. He attempted to stand but lost his balance and fell over onto his right side making contact with a soft recliner chair and landing in the seated position against it. He states since that time he has been having a pain and discomfort in his right side that is really only present with certain movements and at most is a 3/10. He came in for ER evaluation due to his concern that he takes blood thinners and he had fall with possible injury. He states he did not hit his head or lose consciousness he did not injure any other part of his body. He is unsure if the injury is related to hitting the recliner on the way down to the ground or if he may have accidentally twisted causing the injury. He notes that pressure on the front of his low ribs on the right side causes some pain to radiate around to the back of his low ribs on the right side. He has not had any new dizziness lightheadedness, prodrome, blood in his urine or stool or any other symptoms or concerns since the event. He denies neck pain, headache, vision change, abdominal pain, shortness of breath, pain with inspiration/breathing or other. Related Data Home Medications ?Medication ?Instructions ?Recorded ?Confirmed carvedilol 6.25 mg tablet (Coreg) 6.25 mg PO BID ##0 1 07/03/15 01/16/25 multivitamin (Multiple Vitamins 1 tab PO QDAY ##0 04/14 01/16/25 tablet) apixaban 5 mg tablet (Eliquis) 5 mg PO BID 02/05/20 diltiazem HCl 120 mg capsule,24 120 mg PO DAILY 01/16/25 hr,extended release finasteride 5 mg tablet 5 mg PO DAILY 02/05/2001/16 ReaMed Airsense 11 Auto 07/18/21 01/16/25 terazosin 10 mg capsule 10 mg PO DAILY #0 caps 01/1601/16/25 cholecalciferol (vitamin D3) 25 25 mcg PO DAILY PRN 01/16/25 mcg (1,000 unit) capsule Previous Rx's ?Medication ?Instructions ?Recorded chlorthalidone 25 mg tablet 25 mg PO DAILY #90 tabs albuterol sulfate 90 mcg/actuation 2 puff inhalation D AILY PRN 01/13/25 aerosol inhaler (Ventolin HFA) Wheezing #8.5 grams lorazepam 1 mg tablet 0.5 - 1 mg (0.5 - 1 x 1 mg) PO 03/02/25 BEDTIME PRN Sleep #30 tabs Allergies Allergy/AdvReac Type Severity Reaction Status Date / Time No Known Drug Allergies Allergy Verified 03/13/25 13:02 Review of Systems Review of Systems Narrative: See HPI Patient History Medical History COVID-19 (~07/2022) jail current use of anticoagulant Fatigue due to sleep pattern disturbance (~01/27/21) Obesity (BMI 30-39.9) (Unknown) Insomnia due to medical condition (~01/27/21) Obstructive sleep apnea, adult (~01/27/21) GERALD (obstructive sleep apnea) Thoracic spine tumor Prostatitis GERD (gastroesophageal reflux disease) CHF (congestive heart failure) Decreased platelet count SVT (supraventricular tachycardia) Osteoarthritis Atrial flutter with controlled response Paroxysmal atrial fibrillation Herpes Hearing loss Cataracts, bilateral (~2016) Diverticular disease of colon Elevated PSA BPH w urinary obs/LUTS H/O adenomatous polyp of colon Hypogonadism male Essential hypertension COPD (chronic obstructive pulmonary disease) Surgical History S/P cataract extraction Anesthesia History of colonoscopy History of needle biopsy (~2015) History of elbow surgery (~1995) Status post atrial septal defect repair (~01/2018) S/P ablation of atrial fibrillation (~2017) Family History Mother Cancer Father Diabetes mellitus Family/Other Skin cancer Social History household members: none Tobacco: How many years used: 30 alcohol intake: current Smoking Status: Former smoker tobacco type: cigarettes alcohol intake frequency: 0-2 drinks per day Alcohol type: wine Exam Narrative Exam Narrative: GENERAL: [79] year old patient appears stated age. Well-developed patient, in mild distress. HEAD: Atraumatic. Normocephalic. EYES: Pupils equal round and reactive. Extraocular motions intact. No scleral icterus. No injection or drainage. ENT: Nose without bleeding, purulent drainage. Throat without erythema, tonsillar hypertrophy or exudate. Airway patent. NECK: Trachea midline. Non tender CARDIOVASCULAR: Regular rate and rhythm without murmurs, gallops, or rubs. RESPIRATORY: Clear to auscultation. Breath sounds equal bilaterally. No wheezes, rales, or rhonchi. GASTROINTESTINAL: Abdomen soft, non-tender, nondistended--see back EXTREMITIES: No edema or joint tenderness. BACK: Nontender without deformity or crepitance in the C-spine T-spine and L- spine. Normal active range of motion of the neck. There is slight tenderness over the inferior rib at the costal margin at rib 9/10. There is slight tenderness over ribs 9/10 posteriorly and laterally without any bruising or discoloration to the skin noted. Otherwise No flank tenderness. NEURO: AOx3. SKIN: No rash or erythema of visible areas Initial Vital Signs Initial Vital Signs: Vital Signs Temperature 97.6 F 03/13/25 13:01 Pulse Rate 84 03/13/25 13:01 Respiratory Rate 18 03/13/25 13:01 Blood Pressure 164/78 H 03/13/25 13:01 Pulse Oximetry 97 03/13/25 13:01 Oxygen Delivery Method Room Air 03/13/25 13:01 Course Orders Ordered: ED Orders 03/13/25 13:35 XR ribs RT min 3V w CXR1V Stat Vital Signs Vital signs: Vital Signs - 8 hr 03/13/25 13:01 03/13/25 15:52 Temperature 97.6 F Pulse Rate 84 79 Respiratory Rate 18 16 Blood Pressure 164/78 H 122/80 Pulse Oximetry 97 95 Oxygen Delivery Method Room Air Room Air Oxygen Flow Rate 95 MDM - Fall Differential Diagnosis Differential diagnosis: Likely other (rib fracture, bruised rib, muscle strain- intercostal) Lab Data Attestation: I reviewed the patient's lab results. Labs: Urine Dip Bedside Urine Glucose Negative Bedside Urine Bilirubin - Negative Bedside Urine Ketone - Negative Urine Specific [place] 1.015 Bedside Urine Occult Blood - Negative Bedside Urine pH 6 Bedside Urine Protein - Negative Bedside Urine Urobilinogen - Negative Bedside Urine Nitrite - Negative Bedside Urine Leukocytes - Negative Esterase Imaging Data XR ribs R: My Impression: Agree with Radiology interpretation Radiologist's Impression: [address] [address] XRay Report Signed Patient: Lauro Reynaga MR#: [id number] : 1945 Acct:[id number] Age/Sex: 79 / M Date of Service: 03/13/25 Loc: ED Accession Number: [id number] Procedure: XR ribs RT min 3V w CXR1V Ordering Provider: Shilpa Pavon PA-C PROCEDURE: XR RIBS RT MIN 3V W CXR 1V INDICATIONS: R posterior rib pain/fall TECHNIQUE: 2 views of the ribs were acquired, along with a single view chest. COMPARISON: None. FINDINGS: Surgical changes and devices: None. Bones and chest wall: No acute fractures or dislocations. No suspicious bony lesions. Overlying soft tissues appear unremarkable. Healed, remote bilateral rib fractures. Lungs and pleura: No pleural effusions or pneumothorax. Lungs appear clear. Mediastinum: Mediastinal contours appear normal. Heart size is normal. IMPRESSION: No displaced rib fracture or pneumothorax. Dictated by: Bakari Mccrary M.D. on 03/13/2025 at 14:08 Approved by: Bakari Mccrary M.D. on 03/13/2025 at 14:09 [facility] Narrative Medical decision making narrative: This is a well-appearing 79-year-old male w/ hx HTN, COPD, Afib on eliquis presenting with concern for a fall from sitting position today at around noon and pain in his right side/flank over his lower ribs 9 and 10 with certain movements pain goes up to a 3/10. He did not hit his head or lose consciousness and has no other symptoms, injuries or complaints. Exam and history are most consistent with an intercostal muscle strain, possibly bruised rib. A rib fracture is also a possibility though x-ray rib series does not show a fracture. Did peer financial counselor the patient that if he has persistent pain in this area he could have it reimaged in 7-10 days' time. A urine was checked as he is on Eliquis and there was no blood present. He has no abdominal tenderness and I have low suspicion for internal bleeding based on mechanism, exam, and vitals and CT scan was not obtained. He was advised regarding monitoring for formation of any significant bruising to the area of his injury, any new abdominal pain or back/flank pain or worsening pain also to monitor for new dizziness or lightheadedness and make sure he seeks immediate re-evaluation if any of these symptoms develop. He is in agreement with this plan. Otherwise he plans to follow up with his PCP. He is advised he can take Tylenol for pain and may try heat and or ice over the area as well. Return precautions provided, follow-up plan discussed, all questions answered. Discharge Plan Departure Patient Disposition: Home Clinical Impression: Rib pain on right side Intercostal muscle strain Qualifiers: Encounter type: initial encounter Qualified Code(s): S29.011A - Strain of muscle and tendon of front wall of thorax, initial encounter Fall Qualifiers: Encounter type: initial encounter Qualified Code(s): W19.XXXA - Unspecified fall, initial encounter Activity Restrictions/Additional Instructions: *You have been diagnosed with [fall, intercostal muscle strain, rib pain] *What to do: *Please continue to take your regular medications as directed. [ ] New medication prescriptions sent to your pharmacy: [ ] [ ] New medication written as a paper prescription [ X] No new medications given *Please follow up with your primary care provider in 2-3 days, call for an appointment. Let them know you were seen in the Emergency Department and that we ask that you be seen in follow up. We will electronically transmit a record of today's note if your PCP is in our system. You came in today with concern for pain in your right side/flank after you had a fall from a chair today. We did x-rays to evaluate your ribs and chest x-ray to make sure your lungs are expanding normally and this all looks good. Sometimes a rib fracture does not show up on an initial x-ray immediately after the injury but I am most suspicious that you have a muscle strain, and could have a bruised rib. You can always have a repeat x-rays of your ribs done by your primary care provider or for re-evaluation in 7-10 days if your rib pain is not improving or is worsening. We checked your urine today and there was no blood present. I do not suspect you have any internal bleeding from your fall today based on this and your exam. If you do develop new symptoms such as formation of any significant bruising to the area of your injury, any new abdominal pain or back/flank pain or worsening pain, new dizziness or lightheadedness make sure you seek immediate re-evaluation if any of these symptoms develop. Otherwise you can follow up with your primary care provider. You can take Tylenol for pain you can also try ice and heat over the area of discomfort. You already take a half a lorazepam at night to help you sleep. This will likely also helps some with your muscle and rib pain. I hope that you feel better soon. *If you do not have a primary care provider please contact the [facility] Resource line at [phone]. They will ask some questions about your medical history and help get you set up with a doctor in the community. *Return to Emergency Department if you should have any new, worsening or concerning symptoms, such as [fever greater than 101 F, shaking chills, worsening pain, persistent vomiting or other bothersome symptoms] Prescriptions: No Action carvedilol [Coreg] 6.25 MG tablet 6.25 mg PO BID Qty: 0 multivitamin [Multiple Vitamins] 1 EACH tablet 1 tab PO QDAY Qty: 0 albuterol sulfate [Ventolin HFA] 90 mcg/actuation HFA aerosol inhaler 2 puff inhalation DAILY PRN (Reason: Wheezing) Qty: 8.5 6RF lorazepam 1 mg tablet 0.5 - 1 mg PO BEDTIME PRN (Reason: Sleep) Qty: 30 1RF cholecalciferol (vitamin D3) 25 mcg (1,000 unit) capsule 25 mcg PO DAILY PRN Rx Instructions: During Winter/Colder Seasons when sun isn't out as often. terazosin 10 mg capsule 10 mg PO DAILY Qty: 0 chlorthalidone 25 mg tablet 25 mg PO DAILY Qty: 90 3RF diltiazem HCl 120 mg Capsule,Extended Release 24 Hr 120 mg PO DAILY finasteride 5 mg Tablet 5 mg PO DAILY Eliquis 5 mg Tablet 5 mg PO BID (DME) ReaMed Airsense 11 Auto See Rx Instructions .Route .MEDSUPPLY Rx Instructions: CPAP Min: 4 Max: 16 DME: [facility] Referrals: Lauro Hinkle MD [Primary Care Provider, Internal Medicine] Stand Alone Forms: Patient Portal/API
[2025-03-13 15:52] VITALS: BP 122/80; PULSE 79; RESP 16; O2SAT 95
== END 2025-03-13 15:53 | disposition home or self-care (01) ==
PROVIDERS: Emergency Provider Student in an Organized Health Care Education/Training Program; Family Provider Internal Medicine; PCP Internal Medicine
DX: R07.81 Pleurodynia (principal); S29.011A Strain of muscle and tendon of front wall of thorax, initial encounter; W18.30XA Fall on same level, unspecified, initial encounter; Z79.01 Long term (current) use of anticoagulants
CPT/HCPCS: 71101; 81003; 99281; 99283

== ENCOUNTER → 2025-03-26 13:53 | Outpatient (CLI) | payer MEDICARE, OTHER, SELFPAY ==
[2023-05-18 14:55] VITALS: BMI 32.7
[2025-03-26 15:16] LABS: Blood Urea Nitrogen 32 mg/dL (9-20); Calcium 9.5 mg/dL (8.4-10.2); Carbon Dioxide 34 mmol/L (22-32); Chloride 101 mmol/L (98-107); Estimated Glomerular Filt Rate > 60 mL/min (>60); Glucose 130 mg/dL (70-99); HEMOLYSIS < 15 (0-50); Potassium 3.8 mmol/L (3.4-5.1); Sodium 143 mmol/L (137-145)
== END ==
PROVIDERS: Family Provider Internal Medicine; PCP Internal Medicine; Referring Provider Internal Medicine; Visit Provider Internal Medicine Cardiovascular Disease
DX: I10 Essential (primary) hypertension (principal); I48.21 Permanent atrial fibrillation
CPT/HCPCS: 36415; 80048